=== PATIENT | male | born 1960 | race African-American/Black ===

== ENCOUNTER → 2016-04-09 | Outpatient (CLI) | payer MEDICARE, OTHER ==
[~2016-04-09] MED LIST: ATOR1TAB18 PO; CARV12.52 PO; CARV25TA PO; CITA20TA4 PO; DEXA4INJ9 IM; DIABETIC SHOES; DICL75TA PO; FURO20TA PO; GLIP5TAB8 PO; INFL1INJ53 IM; KEPP750T PO; KETO60IN6 IM; LYRI150C PO; MEDR4PAK PO; METF1000 PO; METH2.5T PO; MILN100 PO; MILN50 PO; NORC5TAB PO
[2016-04-09 13:43] LABS: HEMATOCRIT 37.7 % (39.0-51.0); MEAN CELL VOLUME 89.2 FL (80.0-100.0); MEAN CORPUSCULAR HEMOGLOBIN 29.6 PG (27.0-34.0); MEAN CORPUSCULAR HGB CONC 33.2 % (32.0-36.0); PLATELET COUNT 189 TH/MM3 (150-450); RED BLOOD COUNT 4.22 MIL/MM3 (4.50-5.90); RED CELL DISTRIBUTION WIDTH 14.1 % (11.6-17.2); REVIEW FLAG FINAL; WHITE BLOOD COUNT 5.9 TH/MM3 (4.0-11.0)
[2016-04-09 13:51] LABS: ALT (GPT) 25 U/L (12-78); ANION GAP 4 MEQ/L (5-15); AST (GOT) 16 U/L (15-37); BICARBONATE 29.5 MEQ/L (21.0-32.0); BLOOD UREA NITROGEN 22 MG/DL (7-18); CHLORIDE 112 MEQ/L (98-107); GLOMERULAR FILTRATION RATE 80 ML/MIN (>89); GLUCOSE,FASTING 107 MG/DL (74-99); SODIUM (NA) 145 MEQ/L (136-145)
[2016-04-09 13:54] LABS: ALKALINE PHOSPHATASE 56 U/L (45-117); TOTAL BILIRUBIN ADULT 0.4 MG/DL (0.2-1.0)
[2016-04-09 14:03] LABS: WESTERGREN SEDIMENTATION RATE 22 mm/hr (0-20)
== END ==
LOC: CLAB 13:06
PROVIDERS: ATTEND Internal Medicine Rheumatology
DX: M05.89 Other rheumatoid arthritis with rheumatoid factor of multiple sites (principal); Z79.899 Other long term (current) drug therapy
CPT/HCPCS: 36415; 80053; 85027; 85652

== ENCOUNTER → 2017-05-14 | Outpatient (CLI) | payer MEDICARE, MEDICAID ==
[~2017-05-14] MED LIST changes: -ATOR1TAB18 PO; +ATOR80TA45 PO; +BARIATRIC ROLLA1 MIS; -CARV25TA PO; -DEXA4INJ9 IM; -INFL1INJ53 IM; -KETO60IN6 IM; -MILN50 PO; +MISCMIS81
[2017-05-14 11:33] LABS: AUTOMATED NEUTROPHIL # 3.6 TH/MM3 (1.8-7.7); BASOPHIL % 0.8 % (0.0-2.0); EOSINOPHIL # 0.1 TH/MM3 (0-0.4); HEMATOCRIT 39.4 % (39.0-51.0); HEMOGLOBIN 13.1 GM/DL (13.0-17.0); LYMPH % 23.4 % (9.0-44.0); LYMPHOCYTE # 1.3 TH/MM3 (1.0-4.8); MEAN CORPUSCULAR HEMOGLOBIN 31.2 PG (27.0-34.0); MEAN CORPUSCULAR HGB CONC 33.2 % (32.0-36.0); MONOCYTE # 0.4 TH/MM3 (0-0.9); NEUT % 66.8 % (16.0-70.0); PLATELET COUNT 174 TH/MM3 (150-450); RED BLOOD COUNT 4.19 MIL/MM3 (4.50-5.90); RED CELL DISTRIBUTION WIDTH 14.2 % (11.6-17.2); WHITE BLOOD COUNT 5.4 TH/MM3 (4.0-11.0)
[2017-05-14 11:35] LABS: ALBUMIN 4.1 GM/DL (3.4-5.0); ALT (GPT) 21 U/L (12-78); AST (GOT) 10 U/L (15-37); BICARBONATE 28.2 MEQ/L (21.0-32.0); BLOOD UREA NITROGEN 22 MG/DL (7-18); CALCIUM 9.7 MG/DL (8.5-10.1); CHLORIDE 113 MEQ/L (98-107); CHOLESTEROL 164 MG/DL (120-200); CREATININE 1.16 MG/DL (0.60-1.30); GLOMERULAR FILTRATION RATE 79 ML/MIN (>89); GLUCOSE,FASTING 127 MG/DL (74-99); SODIUM (NA) 144 MEQ/L (136-145); TRIGLYCERIDES 68 MG/DL (42-150)
[2017-05-14 11:37] LABS: ALKALINE PHOSPHATASE 69 U/L (45-117); LDL CHOLESTEROL 87 MG/DL (0-99); TOTAL BILIRUBIN ADULT 0.4 MG/DL (0.2-1.0)
[2017-05-14 19:22] LABS: HEMOGLOBIN A1C 6.5 % (4.3-6.0)
== END ==
LOC: CLAB 10:53
DX: E11.9 Type 2 diabetes mellitus without complications (principal); E78.5 Hyperlipidemia, unspecified; I10 Essential (primary) hypertension; Z12.5 Encounter for screening for malignant neoplasm of prostate
CPT/HCPCS: 36415; 80053; 80061; 83036; 84153; 85025

== ENCOUNTER → 2017-05-28 | Outpatient (CLI) | payer MEDICARE, MEDICAID ==
[2017-05-28 09:46] LABS: HEMATOCRIT 41.6 % (39.0-51.0); HEMOGLOBIN 13.8 GM/DL (13.0-17.0); MEAN CELL VOLUME 93.4 FL (80.0-100.0); MEAN CORPUSCULAR HEMOGLOBIN 31.1 PG (27.0-34.0); MEAN CORPUSCULAR HGB CONC 33.3 % (32.0-36.0); MEAN PLATELET VOLUME 9.1 FL (7.0-11.0); PLATELET COUNT 148 TH/MM3 (150-450); RED BLOOD COUNT 4.45 MIL/MM3 (4.50-5.90); WHITE BLOOD COUNT 4.6 TH/MM3 (4.0-11.0)
[2017-05-28 10:08] LABS: ALBUMIN 4.2 GM/DL (3.4-5.0); AST (GOT) 17 U/L (15-37); BICARBONATE 25.9 MEQ/L (21.0-32.0); BLOOD UREA NITROGEN 23 MG/DL (7-18); CALCIUM 10.1 MG/DL (8.5-10.1); CHLORIDE 114 MEQ/L (98-107); CREATININE 1.22 MG/DL (0.60-1.30); GLOMERULAR FILTRATION RATE 75 ML/MIN (>89); GLUCOSE,FASTING 130 MG/DL (74-99); SODIUM (NA) 148 MEQ/L (136-145)
[2017-05-28 10:14] LABS: ALKALINE PHOSPHATASE 70 U/L (45-117); ALT (GPT) 38 U/L (12-78); TOTAL BILIRUBIN ADULT 0.4 MG/DL (0.2-1.0); TOTAL PROTEIN 8.1 GM/DL (6.4-8.2)
[2017-05-28 13:55] LABS: RHEUMATOID FACTOR SCREEN POSITIVE (NEGATIVE)
== END ==
LOC: CLAB 09:24
PROVIDERS: ATTEND Family Medicine
DX: M06.00 Rheumatoid arthritis without rheumatoid factor, unspecified site (principal)
CPT/HCPCS: 36415; 80053; 85027; 86038; 86430

== ENCOUNTER → 2017-08-13 | Outpatient (CLI) | DX: E11.42 Type 2 diabetes mellitus with diabetic polyneuropathy (principal); I10 Essential (primary) hypertension; G40.909 Epilepsy, unspecified, not intractable, without status epilepticus ==

== ENCOUNTER 2017-09-19 16:39 | Emergency (ER) | payer MEDICARE, MEDICAID ==
[~2017-09-19] VITALS: Ht 193 cm; Wt 90.0 kg
[2017-09-19 17:03] VITALS: BP 120/61; PULSE 94; RESP 18; TEMP 98.2; O2SAT 97
--- NOTE | 2017-09-19 17:51 | PD ---
HPI Chief Complaint: General Weakness Time Seen by Provider: 17:35 Travel History International Travel<30 days: No Contact w/Intl Traveler<30days: No Traveled to known affect area: No History of Present Illness HPI 57-year-old male complains of generalized malaise and unsteady on his feet. Patient states that he has mild aching headache. Patient denies any visual change. 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 Patient denies any neck pain. Patient denies any chest pain or shortness of breath. Patient denies abdominal pain. Patient denies any nausea vomiting diarrhea. Patient denies any back pain. Patient denies any dysuria frequency. Patient denies any focal weakness or numbness of the extremity. Patient states that he fell several times today. Patient did not injure himself during the fall. Patient states that he has been eating well. Patient has history hypertension, diabetes , hyperlipidemia. Patient is a non-smoker. Patient denies alcohol or drug abuse. PFSH Past Medical History Arthritis: Yes Asthma: Yes Autoimmune Disease: No Blood Disorders: No Anxiety: No Depression: Yes Heart Rhythm Problems: No Cancer: No Cardiovascular Problems: Yes High Cholesterol: Yes Chest Pain: Yes Congestive Heart Failure: Yes COPD: Yes Cerebrovascular Accident: Yes Diabetes: Yes Diminished Hearing: No Endocrine: No Gastrointestinal Disorders: Yes GERD: Yes Glaucoma: No Genitourinary: No Headaches: No Hepatitis: No Hiatal Hernia: No Hypertension: Yes Immune Disorder: No Kidney Stones: No Musculoskeletal: Yes Neurologic: Yes Psychiatric: Yes Reproductive: No Respiratory: Yes Myocardial Infarction: No Renal Failure: No Seizures: Yes Sleep Apnea: No Thyroid Disease: No Ulcer: No Past Surgical History Abdominal Surgery: No AICD: No Body Medical Devices: METAL RODS/PINS RT LEG Ear Surgery: No Endocrine Surgery: No Eye Surgery: Yes (ARTIFICIAL LT EYE) Genitourinary Surgery: No Gynecologic Surgery: No Neurologic Surgery: No Oral Surgery: No Pacemaker: No Thoracic Surgery: No Other Surgery: Yes Social History Alcohol Use: No Tobacco Use: No Substance Use: No Allergies-Medications (Allergen,Severity, Reaction): Coded Allergies: No Known Allergies (Verified , 06/30/16) Reported Meds & Prescriptions Reported Meds & Active Scripts Active Furosemide 20 Mg Tab 20 Mg PO BID Metformin (Metformin HCl) 1,000 Mg Tab 1,000 Mg PO BIDPC With meals Carvedilol 12.5 Mg Tab 12.5 Mg PO BID Keppra (Levetiracetam) 750 Mg Tab 750 Mg PO BID Glipizide 5 Mg Tab 5 Mg PO DAILY Take 30 minutes before a meal Diclofenac Sodium DR (Diclofenac Sodium) 75 Mg Tabdr 75 Mg PO BID Savella (Milnacipran) 100 Mg Tab 100 Mg PO BID Methotrexate 2.5 Mg Tab 20 Mg PO Q7D [place] (Hydrocodone-Acetaminophen) 5-325 mg Tab 1 Tab PO Q6H PRN Citalopram (Citalopram Hydrobromide) 20 Mg Tab 20 Mg PO DAILY Lyrica (Pregabalin) 150 Mg Cap 150 Mg PO BID Reported Atorvastatin (Atorvastatin Calcium) 80 Mg Tab 80 Mg PO HS Review of Systems General / Constitutional: No: Fever Eyes: No: Visual changes HENT: No: Headaches Cardiovascular: No: Chest Pain or Discomfort Respiratory: No: Shortness of Breath Gastrointestinal: No: Abdominal Pain Genitourinary: No: Dysuria Musculoskeletal: No: Pain Skin: No Rash Neurologic: No: Weakness Psychiatric: No: Depression Endocrine: No: Polydipsia Hematologic/Lymphatic: No: Easy Bruising Physical Exam Narrative GENERAL: Well-nourished, well-developed patient. SKIN: Focused skin assessment warm/dry. HEAD: Normocephalic. EYES: No scleral icterus. No injection or drainage. NECK: Supple, trachea midline. No JVD or lymphadenopathy. CARDIOVASCULAR: Regular rate and rhythm without murmurs, gallops, or rubs. RESPIRATORY: Breath sounds equal bilaterally. No accessory muscle use. GASTROINTESTINAL: Abdomen soft, non-tender, nondistended. MUSCULOSKELETAL: No cyanosis, or edema. BACK: Nontender without obvious deformity. No CVA tenderness. Neurologic exam: Patient is awake and alert oriented 3. Patient moves all extremity well. No obvious focal neurological deficit. Data Data Last Documented VS Vital Signs Date Time Temp Pulse Resp B/P (MAP) Pulse Ox O2 Delivery O2 Flow Rate FiO2 09/19/17 18:00 84 18 97 Nasal Cannula 2.00 09/19/17 17:03 98.2 120/61 (80) Orders Orders Electrocardiogram (09/19/17 17:46) Complete Blood Count With Diff (09/19/17 17:46) Comprehensive Metabolic Panel (09/19/17 17:46) Creatine Kinase (Cpk) (09/19/17 17:46) Troponin I (09/19/17 17:46) Prothrombin Time / Inr (Pt) (09/19/17 17:46) Act Partial Throm Time (Ptt) (09/19/17 17:46) Urinalysis - C+S If Indicated (09/19/17 17:46) Thyroid Stimulating Hormone (09/19/17 17:46) Chest, Single Ap (09/19/17 17:46) Ct Brain W/O Iv Contrast(Rout) (09/19/17 17:46) Iv Access Insert/Monitor (09/19/17 17:46) Ecg Monitoring (09/19/17 17:46) Oximetry (09/19/17 17:46) Sodium Chlor 0.9% 1000 Ml Inj (Ns 1000 M (09/19/17 18:00) Labs Laboratory Tests Test 09/19/17 17:57 White Blood Count 6.4 TH/MM3 Red Blood Count 4.13 MIL/MM3 Hemoglobin 13.1 GM/DL Hematocrit 38.4 % Mean Corpuscular Volume 92.9 FL Mean Corpuscular Hemoglobin 31.6 PG Mean Corpuscular Hemoglobin Concent 34.0 % Red Cell Distribution Width 14.4 % Platelet Count 163 TH/MM3 Mean Platelet Volume 9.6 FL Neutrophils (%) (Auto) 62.2 % Lymphocytes (%) (Auto) 28.9 % Monocytes (%) (Auto) 7.1 % Eosinophils (%) (Auto) 0.9 % Basophils (%) (Auto) 0.9 % Neutrophils # (Auto) 4.0 TH/MM3 Lymphocytes # (Auto) 1.8 TH/MM3 Monocytes # (Auto) 0.5 TH/MM3 Eosinophils # (Auto) 0.1 TH/MM3 Basophils # (Auto) 0.1 TH/MM3 CBC Comment DIFF FINAL Differential Comment Prothrombin Time 11.0 SEC Prothromb Time International Ratio 1.1 RATIO Activated Partial Thromboplast Time 21.3 SEC Blood Urea Nitrogen 21 MG/DL Creatinine 1.33 MG/DL Random Glucose 120 MG/DL Total Protein 8.0 GM/DL Albumin 4.0 GM/DL Calcium Level 9.6 MG/DL Alkaline Phosphatase 69 U/L Aspartate Amino Transf (AST/SGOT) 12 U/L Alanine Aminotransferase (ALT/SGPT) 20 U/L Total Bilirubin 0.3 MG/DL Sodium Level 144 MEQ/L Potassium Level 3.9 MEQ/L Chloride Level 112 MEQ/L Carbon Dioxide Level 23.2 MEQ/L Anion Gap 9 MEQ/L Estimat Glomerular Filtration Rate 68 ML/MIN Total Creatine Kinase 150 U/L Troponin I LESS THAN 0.02 NG/ML Thyroid Stimulating Hormone 3rd Gen 0.873 uIU/ML MDM Medical Decision Making Medical Screen Exam Complete: Yes Emergency Medical Condition: Yes Interpretation(s) Last Impressions Head CT 09/19/171745 Signed Impressions: CONCLUSION: 1. Severe stable hydrocephalus compared with August 2010. Large cisterna magna. Chest X-Ray 09/19/171745 Signed Impressions: CONCLUSION: Elevated hemidiaphragms with probable basilar atelectasis. Findings similar to 2011. 1909 p.m. CBC within normal limits. BUN 21. Creatinine 1.33. GFR 68. Cardiac enzymes are normal. TSH normal. Differential Diagnosis Differential diagnosis including dehydration, electrolyte imbalance, TIA, CVA, viral syndrome. Narrative Course 57-year-old male with generalized malaise and unsteady on his feet. Symptoms started this morning. Normal saline solution 1 L IV bolus. Diagnosis Primary Impression: Acute kidney injury Additional Impression: Dehydration Patient Instructions: General Instructions Additional Instructions: Advised patient to increase p.o. fluid intake. Follow-up with personal physician. Return if worse. Med/Other Pt SpecificInfo: No Change to Meds Disposition: 01 DISCHARGE HOME Condition: Stable August Ortega MD Sep 19, 2017 17:51
[2017-09-19 17:59] VITALS: O2SAT 97
[2017-09-19] MEDS ORDERED: SODIUM CHLOR 0.9% 1000 ML INJ 1,000 ML IV ONE (18:00)
[2017-09-19 18:17] LABS: BASOPHIL # 0.1 TH/MM3 (0-0.2); BASOPHIL % 0.9 % (0.0-2.0); EOSINOPHIL # 0.1 TH/MM3 (0-0.4); EOSINOPHIL % 0.9 % (0.0-4.0); HEMATOCRIT 38.4 % (39.0-51.0); HEMOGLOBIN 13.1 GM/DL (13.0-17.0); LYMPH % 28.9 % (9.0-44.0); LYMPHOCYTE # 1.8 TH/MM3 (1.0-4.8); MEAN CELL VOLUME 92.9 FL (80.0-100.0); MEAN CORPUSCULAR HEMOGLOBIN 31.6 PG (27.0-34.0); MEAN PLATELET VOLUME 9.6 FL (7.0-11.0); MONO % 7.1 % (0.0-8.0); MONOCYTE # 0.5 TH/MM3 (0-0.9); NEUT % 62.2 % (16.0-70.0); PLATELET COUNT 163 TH/MM3 (150-450); RED BLOOD COUNT 4.13 MIL/MM3 (4.50-5.90); RED CELL DISTRIBUTION WIDTH 14.4 % (11.6-17.2); WHITE BLOOD COUNT 6.4 TH/MM3 (4.0-11.0)
[2017-09-19 18:32] LABS: INTERNATIONAL NORMALIZED RATIO 1.1 RATIO
[2017-09-19 18:37] LABS: ALT (GPT) 20 U/L (12-78); AST (GOT) 12 U/L (15-37); BICARBONATE 23.2 MEQ/L (21.0-32.0); BLOOD UREA NITROGEN 21 MG/DL (7-18); CALCIUM 9.6 MG/DL (8.5-10.1); CHLORIDE 112 MEQ/L (98-107); CREATININE 1.33 MG/DL (0.60-1.30); GLOMERULAR FILTRATION RATE 68 ML/MIN (>89); GLUCOSE,RANDOM 120 MG/DL (74-106); SODIUM (NA) 144 MEQ/L (136-145)
[2017-09-19 18:48] LABS: ALKALINE PHOSPHATASE 69 U/L (45-117); TOTAL BILIRUBIN ADULT 0.3 MG/DL (0.2-1.0); TROPONIN I LESS THAN 0.02 NG/ML (0.02-0.05)
--- NOTE | 2017-09-19 18:55 | RADRPT ---
EXAM DATE: 09/19/2017 6:15 PM EDT AGE/SEX: 57 years / Male INDICATIONS: Weakness. CLINICAL DATA: This is the patient's initial encounter. Patient reports that signs and symptoms have been present for 1 day and indicates a pain score of 0/10. MEDICAL/SURGICAL HISTORY: Chronic obstructive pulmonary disease. Diabetes. Hypertension. None . COMPARISON: [facility] – [place]ST SINGLE AP, 03/15/2012. . FINDINGS: Mild basilar airspace disease. No effusion or pneumothorax. Heart size upper limits normal. Elevated hemidiaphragms. CONCLUSION: Elevated hemidiaphragms with probable basilar atelectasis. Findings similar to 2011. Electronically signed by: Eduar Valverde MD 09/19/2017 6:54 PM EDT
--- NOTE | 2017-09-19 19:02 | RADRPT ---
EXAM DATE: 09/19/2017 6:41 PM EDT AGE/SEX: 57 years / Male INDICATIONS: Cephalgia and general weakness today. CLINICAL DATA: This is the patient's initial encounter. Patient reports that signs and symptoms have been present for 1 day and indicates a pain score of 7/10. MEDICAL/SURGICAL HISTORY: Stroke. Congestive heart failure. Diabetes. . eye prosthesis RADIATION DOSE: 64.63 CTDI (mGy) COMPARISON: [facility] – [place], CT BRAIN W/O CONTRAST, 09/10/2010. . TECHNIQUE: CT of the head without contrast. Using automated exposure control and adjustment of the mA and/or kV according to patient size, radiation dose was kept as low as reasonably achievable to ob tain optimal diagnostic quality images. DICOM format image data is available electronically for revi ew and comparison. FINDINGS: Cerebrum: Compare September 10, 2010. Severe stable hydrocephalus present. 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 No new hemorrhage or mass effect or shift. 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 Skull: The calvaria is intact. No evidence of skull fracture. CONCLUSION: 1. Severe stable hydrocephalus compared with August 2010. Large cisterna magna. Electronically signed by: Eduar Valverde MD 09/19/2017 7:00 PM EDT
[2017-09-19 20:04] LABS: BILIRUBIN, URINE NEG (NEG); BLOOD, URINE NEG (NEG); CALCIUM OXALATE CRYSTALS,URINE OCC /hpf; GLUCOSE,URINE NEG (NEG); HYALINE CAST, URINE 4 /lpf (RARE); KETONE, URINE NEG (NEG); MUCUS URINE FEW /lpf (OCC); NITRITE,URINE NEG (NEG); SQUAMOUS EPITHELIAL CELL URINE 1 /hpf (0-5); URINE LEUKOCYTE ESTERASE NEG (NEG)
[2017-09-19 20:07] LABS: URINE COLOR DARK-YELLOW (YELLW/STRAW)
--- NOTE | 2017-09-20 23:18 | EKG ---
Date Performed: 09/19/2017 Time Performed: 17:54:14 PTAGE: 57 years EKG: Sinus rhythm POSSIBLE RIGHT VENTRICULAR CONDUCTION DELAY BORDERLINE ECG INTERPRETATION BASED ON A DEFAULT AGE OF 40 YEARS PREVIOUS TRACING : 09/10/2011 01.11 Compared to previous tracing, QTc has normalized DOCTOR: Jaime Qureshi Interpretating Date/Time 09/20/2017 23:16:56
== END 2017-09-19 20:41 | disposition home or self-care (01) ==
LOC: NEPD 16:39
DX: N17.9 Acute kidney failure, unspecified (principal); E86.0 Dehydration; R26.81 Unsteadiness on feet; R51 Headache; R94.31 Abnormal electrocardiogram [ECG] [EKG]; I10 Essential (primary) hypertension; E11.9 Type 2 diabetes mellitus without complications; E78.5 Hyperlipidemia, unspecified; K21.9 Gastro-esophageal reflux disease without esophagitis; I50.9 Heart failure, unspecified; G40.909 Epilepsy, unspecified, not intractable, without status epilepticus; F32.9 Major depressive disorder, single episode, unspecified; Z79.84 Long term (current) use of oral hypoglycemic drugs; Z87.39 Personal history of other diseases of the musculoskeletal system and connective tissue; Z87.09 Personal history of other diseases of the respiratory system; Z86.79 Personal history of other diseases of the circulatory system
CPT/HCPCS: 70450; 71045; 80053; 81001; 82550; 84443; 84484; 85025; 85610; 85730; 93005; 96360; 96361; 99285; J7030